=== PATIENT | male | born 1975 | race Caucasian/White ===

== ENCOUNTER → 2019-11-13 | Outpatient (CLI) | payer OTHER ==
--- NOTE | 2019-11-14 12:30 | RADIOLOGY REPORT (SQ) ---
EXAM DESCRIPTION: MRI LT UPPER JOINT WITHOUT COMPLETED DATE/TIME: 11/13/2019 4:08 pm REASON FOR STUDY: M25.512 PAIN IN LEFT SHOULDER M25.512 PAIN IN LEFT SHOULDER M25.561 PAIN IN RIGH T KNEE COMPARISON: None. TECHNIQUE: Non arthrogram left shoulder images acquired and stored on PACS. Multiplanar imaging to i nclude fat sensitive sequences such as T1, water sensitive sequences such as FST2/STIR, cartilage sen sitive sequences such as FSPD/gradient-echo sequences. LIMITATIONS: None. FINDINGS: BONE MARROW AND CORTEX: 1 cm subcortical cyst, posterior aspect left humeral head greater tuberosity JOINT OR BURSAL EFFUSION: No significant joint space fluid or periarticular cysts. Trace fluid in th e subacromial/subdeltoid bursa. GLENO-HUMERAL ARTICULATION: Normal articulation. No subluxation. No cystic change. No osteophytes or cartilage loss. ACROMION AND AC JOINT: Type 2 acromion with moderate bony spurring along its superior aspect. Mild bony spurring and subcortical edema at the AC joint. Mild bony spurring along the undersurface of th e acromion causing narrowing of the subacromial space on sagittal image 7. Trace fluid in the subacr omial/subdeltoid bursa. ROTATOR CUFF AND INTERVAL: No significant tear or signal alteration. No cuff muscle atrophy. No rotator interval tear. No rotator interval thickening to suggest adhesive capsulitis. LABRUM AND BICEPS LABRAL COMPLEX: Intact. No labral tear. Intra-articular long-head biceps tendon n ormal. Distal biceps in normal location in bicipital groove. Sublabral foramen is present on axial images 7-11, coronal image 6-7, and sagittal images 13-14. REMAINDER OF LABRUM AND IGHL : No gross tear or paralabral cyst formation. Labral evaluation is less than optimal without joint distention. No thickening of IGHL to suggest adhesive capsulitis. PERIARTICULAR AND ADJACENT SOFT TISSUES: No masses or abnormal nodes. OTHER: No other significant finding. IMPRESSION: Narrowing of the subacromial space with fluid in the subacromial/subdeltoid bursa. 1 cm subcortical cyst posterior left humeral head greater tuberosity Sublabral foramen, an anatomic variant TECHNICAL DOCUMENTATION: JOB ID: [id number] [employer]- All Rights Reserved Reading location - IP/workstation name: [email or web address]
--- NOTE | 2019-11-14 12:53 | RADIOLOGY REPORT (SQ) ---
EXAM DESCRIPTION: MRI RT LOWER JOINT WITHOUT COMPLETED DATE/TIME: 11/13/2019 4:08 pm REASON FOR STUDY: M25.561 PAIN IN RIGHT KNEE M25.512 PAIN IN LEFT SHOULDER M25.561 PAIN IN RIGHT K NEE COMPARISON: None. TECHNIQUE: Non arthrogram MRI rightknee images acquired and stored on PACS. Multiplanar images incl ude fat sensitive sequences as T1, water sensitive sequences as FST2 or STIR, cartilage sensitive seq uences as FSPD, and gradient echo sequences. LIMITATIONS: None. FINDINGS: JOINT AND BURSAE: No joint effusion. No Claudio's cyst. BONE CORTEX AND MARROW: No alteration of signal to suggest marrow replacement. No worrisome bone lesi ons. No occult fracture. ACL: Intact. No degeneration or ganglion cyst. PCL: Intact. MCL: Intact. No periligamentous edema or fluid. LCL: Intact. No periligamentous edema or fluid. MEDIAL MENISCUS: Small tear undersurface mid body medial meniscus best shown on coronal image 18/27. No parameniscal cyst LATERAL MENISCUS: Diffuse horizontal tear throughout the mid body and posterior horn lateral meniscus , coronal images 20-23, sagittal images 4-8. MEDIAL COMPARTMENT: Cartilage preserved. No bone bruises or reactive marrow edema. No osteophytes. LATERAL COMPARTMENT: Cartilage preserved. No bone bruises or reactive marrow edema. No osteophytes. PATELLA: No chondromalacia. No subchondral cysts. Medial and lateral retinacula intact. EXTENSOR MECHANISM: Intact. Quadriceps and patella tendons normal. SOFT TISSUES: Adjacent muscles and subcutaneous tissues normal. Normal flow void in popliteal artery and vein. OTHER: No other significant finding. IMPRESSION: Tiny undersurface mid body medial meniscal tear Diffuse horizontal tear mid body and posterior horn lateral meniscus TECHNICAL DOCUMENTATION: JOB ID: [id number] [employer]- All Rights Reserved Reading location - IP/workstation name: [email or web address]
== END ==
LOC: RAD 14:57
PROVIDERS: ATTEND Nurse Practitioner
DX: M75.82 Other shoulder lesions, left shoulder (principal); M25.512 Pain in left shoulder; S83.281A Other tear of lateral meniscus, current injury, right knee, initial encounter; X58.XXXA Exposure to other specified factors, initial encounter; M25.561 Pain in right knee